=== PATIENT | female | born 1965 | race Caucasian/White ===

== ENCOUNTER → 2016-06-11 | Outpatient (CLI) | payer MEDICAID ==
[2016-06-11 13:26] LABS: CHLORIDE,CL 108 mmol/L (98-110); SODIUM,NA 140 mmol/L (136-146)
== END ==
LOC: MW.CHFP 12:27
PROVIDERS: ATTEND Nurse Practitioner Family
DX: Z00.00 Encounter for general adult medical examination without abnormal findings (principal)
CPT/HCPCS: 36415; 80053; 82746; 83735; 84443; 85027

== ENCOUNTER 2016-06-26 19:01 | Emergency (ER) | payer MEDICAID ==
[2016-06-26] MEDS ORDERED: ALPRAZolam 0.25 MG Tab PO ONE (19:19)
[2016-06-26] MEDS ORDERED: Acetaminophen/HYDROcodone 325-5 MG Tab PO ONE (19:19)
--- NOTE | 2016-06-26 20:24 | EDM.PDOC ---
ED HPI HEAD INJURY - General Chief Complaint: Head Injury Stated Complaint: PT FELL AND HURT HEAD,NECK Time Seen by Provider: 06/26/16 19:08 Source of Information: Reports: Patient History Limitations: Reports: No limitations - History of Present Illness INITIAL COMMENTS - FREE TEXT/NARRATIVE: HISTORY AND PHYSICAL: History of present illness: [50-year-old female now status post slip and fall in the bathroom. Patient states she was cleaning a tub when she slipped fell backwards and hit her head. Patient denies loss of consciousness. She commenced headache and neck pain.] Review of systems: As per history of present illness and below otherwise all systems reviewed and negative. Past medical history: As per history of present illness and as reviewed below otherwise noncontributory. Surgical history: As per history of present illness and as reviewed below otherwise noncontributory. Social history: No reported history of drug or alcohol abuse. Family history: As per history of present illness and as reviewed below otherwise noncontributory. Physical exam: Patient is alert communicative and appropriate however very anxious. She is emotionally labile intermittently conversing normally and seconds later crying HEENT: Atraumatic, normocephalic, pupils reactive, negative for conjunctival pallor or scleral icterus, mucous membranes moist, throat clear, neck supple, soft tissue tenderness bilateral posterior neck with no midline or bony tenderness no step off or crepitus, trachea midline. No stridor Lungs: Clear to auscultation, breath sounds equal bilaterally, chest nontender. No spinal tenderness T. or L-spine. Heart: S1S2, regular, negative for clicks, rubs, or JVD. Abdomen: Soft, nondistended, nontender. Negative for masses or hepatosplenomegaly. Negative for costovertebral tenderness. Pelvis: Stable nontender. Genitourinary: Deferred. Rectal: Deferred. Extremities: Atraumatic, negative for cords or calf pain. Neurovascular unremarkable. Neuro: Awake, alert, oriented. Cranial nerves II through XII unremarkable. Cerebellum unremarkable. Motor and sensory unremarkable throughout. Exam nonfocal. Diagnostics: [CT head and C-spine negative x-ray chest and pelvis negative] Therapeutics: [] Impression: [] Plan: [Signs and symptoms consistent with minor head injury without concussion, cervical strain and contributory anxiety component. Chest x-ray is negative with a benign spinal exam. She is nonfocal neurologically. Patient stable and alert without difficulty on reevaluation prior to discharge after analgesia an anxiety lysis. He is aware to take NSAIDs use ice followup PCP tomorrow. Strict return precautions given specifically no alcohol use or additional sedative ingestion tonight whatsoever. Patient is aware that noncompliance with this recommendation could result in or permanent disability] Definitive disposition and diagnosis as appropriate pending reevaluation and review of above. - Related Data Allergies/ADRs: Allergies Allergy/AdvReac Type Severity Reaction Status Date / Time prochlorperazine Allergy Other Verified 06/26/16 19:10 [From Compazine] prochlorperazine edisylate Allergy Other Verified 06/26/16 19:10 [From Compazine] prochlorperazine maleate Allergy Other Verified 06/26/16 19:10 [From Compazine] Sulfa (Sulfonamide Allergy Other Verified 06/26/16 19:10 Antibiotics) Past Medical History HEENT History: Reports: Otitis media Cardiovascular History: Reports: None Respiratory History: Reports: None Gastrointestinal History: Reports: None Genitourinary History: Reports: None 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: 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 Musculoskeletal History: Reports: Back pain, chronic Other Musculoskeletal History: sciatica Neurological History: Reports: Head trauma, Migraines Psychiatric History: Reports: Addiction, Anxiety Endocrine/Metabolic History: Reports: None - Infectious Disease History Infectious Disease History: Reports: None - Past Surgical History HEENT Surgical History: Reports: Myringotomy w tube(s) Female Surgical History: Reports: None - History Comment History Comment: Alcoholic, previous crack cocaine abuse Social & Family History - Family History Family Medical History: Noncontributory - Tobacco Use Smoking Status *Q: Current Every Day Smoker Years of Tobacco use: 40 Packs/Tins Daily: 1 - Caffeine Use Caffeine Use: Reports: Coffee - Alcohol Use Days Per Week of Alcohol Use: 7 Number of Drinks Per Day: 15 Total Drinks Per Week: 105 - Recreational Drug Use Recreational Drug Use: No Drug Use in Last 12 Months: Yes Recreational Drug Type: Reports: Cocaine, Marijuana/Hashish - Living Situation & Occupation Living situation: Reports: with significant other (Engaged) ED ROS GENERAL - Review of Systems Review Of Systems: See Below (History of present illness) ED EXAM, HEAD INJURY - Physical Exam Exam: See Below (History of present illness) Course - Vital Signs Last Recorded V/S: Last Vital Signs Temp 37.1 C 06/26/16 19:05 Pulse 89 06/26/16 19:05 Resp 20 06/26/16 19:05 BP 151/81 H 06/26/16 19:05 Pulse Ox 97 06/26/16 19:05 - Orders/Labs/Meds Orders: Active Orders 24 hr Category Date Time Status C-Spine [Cervical Spine wo Cont] [CT] Stat Exams 06/26/16 19:13 Taken Chest 1V Frontal [CR] Stat Exams 06/26/16 19:13 Taken Head wo Cont [CT] Stat Exams 06/26/16 19:12 Taken Pelvis 1V or 2V [CR] Stat Exams 06/26/16 19:13 Ordered Meds: Medications Discontinued Medications Generic Name Dose Route Start Last Admin Trade Name Robbi PRN Reason Stop Dose Admin Hydrocodone Bitart/Acetaminophen 1 tab 06/26/16 19:19 06/26/16 19:43 [place]ana 325-5 Mg PO 06/26/16 19:20 1 tab ONETIME ONE Administration Alprazolam 0.25 mg 06/26/16 19:19 06/26/16 19:43 Xanax PO 06/26/16 19:20 0.25 mg ONETIME ONE Administration Departure - Departure Time of Disposition: 20:24 Disposition: Home, Self-Care 01 Condition: good Clinical Impression: Cervical strain, Minor head injury, Anxiety Referrals: PCP,None [Primary Care Provider] - Forms: ED Department Discharge Additional Instructions: You have suffered a minor head injury today with cervical or neck strain. CT scan of your head and neck show no fractures or abnormality. X-rays of the chest and pelvis also showed no additional injury. Take Motrin and Tylenol as needed for pain. Ice any sore areas tonight. Followup with your Dr. tomorrow for reevaluation and return immediately for new severe or worsening symptoms - My Orders Last 24 Hours: My Active Orders 06/26/16 19:12 Head wo Cont [CT] Stat 06/26/16 19:13 C-Spine [Cervical Spine wo Cont] [CT] Stat Chest 1V Frontal [CR] Stat Pelvis 1V or 2V [CR] Stat - Assessment/Plan Last 24 Hours: My Active Orders 06/26/16 19:12 Head wo Cont [CT] Stat 06/26/16 19:13 C-Spine [Cervical Spine wo Cont] [CT] Stat Chest 1V Frontal [CR] Stat Pelvis 1V or 2V [CR] Stat
[2016-06-26 20:45] VITALS: BP 129/78
--- NOTE | 2016-06-27 10:19 | CT ---
EXAM DATE: 06/26/16 PATIENT'S AGE: 50 Patient: ENID GUZMAN Facility: [place], [place] Site . Site : 1965 Study: CT Head [id number]/5/2017 7:32:28 PM Ordering Physician: Sandor Gaston Final Report: INDICATION: pt hit head while cleaning floors TECHNIQUE: CT Head without contrast. COMPARISON: None. FINDINGS: There is no sign of intracranial hemorrhage or mass effect. Ventricles and sulci are symmetric and midline. The powell-white differentiation is preserved. No abnormal intra-axial or extra-axial fluid collection. Mild mucoperiosteal thickening of the imaged maxillary sinuses. No acute disease of the mastoid air cells. No fracture evident. No scalp hematoma/laceration. IMPRESSION: No acute intracranial process. Dictated by: Jacob Levine MD @ 06/26/2016 19:44:50 (Electronic Signature) Report Signed by Proxy and Original Signed Document filed in the Medical Record. [facility]
--- NOTE | 2016-06-27 10:20 | CT ---
EXAM DATE: 06/26/16 PATIENT'S AGE: 50 Patient: ENID GUZMAN Facility: [place], [place] Site . Site : 1965 Study: CT Spine Cervical [id number]/5/2017 7:32:44 PM Ordering Physician: Sandor Gaston Final Report: INDICATION: pt hit head while cleaning floors TECHNIQUE: CT cervical spine without contrast COMPARISON: None FINDINGS: Vertebrae: There are no fractures or suspicious bony lesions. Discs and facet joints: Multilevel degenerative changes most pronounced at the lower cervical levels. Extraspinal findings: Prevertebral soft tissues, visualized airway, and visualized lungs are unremarkable. IMPRESSION: No acute bony abnormality of the cervical spine. Dictated by Jacob Levine MD @ 06/26/2016 7:48:18 PM Dictated by: Jacob Levine MD @ 06/26/2016 19:48:34 (Electronic Signature) Report Signed by Proxy and Original Signed Document filed in the Medical Record. [facility]
--- NOTE | 2016-06-27 10:21 | CR ---
EXAM DATE: 06/26/16 PATIENT'S AGE: 50 Patient: ENID GUZMAN Facility: [place], [place] Site . Site : 1965 Study: XRay Chest [id number]/5/2017 7:34:36 PM Ordering Physician: Sandor Gaston Final Report: INDICATION: fell on a bathtub TECHNIQUE: Chest 1 view COMPARISON: None FINDINGS: Cardiovascular and mediastinum: Heart size and vasculature are normal in caliber and appearance. Mediastinum is within normal limits. Lungs and pleural space: No focal consolidation. No sign of pleural effusion. No pneumothorax. Bones and soft tissues: No significant findings. IMPRESSION: No acute cardiopulmonary disease. Dictated by Jacob Levine MD @ 06/26/2016 7:35:54 PM Dictated by: Jacob Levine MD @ 06/26/2016 19:36:06 (Electronic Signature) Report Signed by Proxy and Original Signed Document filed in the Medical Record. [facility]
--- NOTE | 2016-06-27 10:22 | CR ---
EXAM DATE: 06/26/16 PATIENT'S AGE: 50 Patient: ENID GUZMAN Facility: [place], [place] Site . Site : 1965 Study: XRay Pelvis [id number]/5/2017 7:34:58 PM Ordering Physician: Sandor Gaston Final Report: INDICATION: fell on a bath tub TECHNIQUE: Single AP view of the bony pelvis COMPARISON: None FINDINGS: Bones: No fractures or bone lesions. Joint spaces: Unremarkable. Soft tissues: Unremarkable. IMPRESSION: No gross evidence for acute bony abnormality. Dictated by Jacob Levine MD @ 06/26/2016 7:37:29 PM Dictated by: Jacob Levine MD @ 06/26/2016 19:37:37 (Electronic Signature) Report Signed by Proxy and Original Signed Document filed in the Medical Record. [facility]
== END 2016-06-26 20:45 | disposition home or self-care (01) ==
LOC: MW.ED 19:01
DX: S09.90XA Unspecified injury of head, initial encounter (principal); S16.1XXA Strain of muscle, fascia and tendon at neck level, initial encounter; F41.9 Anxiety disorder, unspecified; F17.210 Nicotine dependence, cigarettes, uncomplicated; W01.0XXA Fall on same level from slipping, tripping and stumbling without subsequent striking against object, initial encounter; Y93.E9 Activity, other interior property and clothing maintenance; Y92.89 Other specified places as the place of occurrence of the external cause; Z98.890 Other specified postprocedural states; Z88.2 Allergy status to sulfonamides; Z88.8 Allergy status to other drugs, medicaments and biological substances
CPT/HCPCS: 70450; 71010; 72125; 72170; 99284; A9270; 99283

== ENCOUNTER 2016-07-29 01:52 | Emergency (ER) | payer MEDICAID ==
[2016-07-29 02:01] VITALS: BP 137/89
[2016-07-29] MEDS ORDERED: Azithromycin 250 MG Tab PO ONE (02:16)
[2016-07-29] MEDS ORDERED: Benzonatate 100 MG Cap PO ONE (02:17)
--- NOTE | 2016-07-29 02:18 | EDM.PDOC ---
ED HISTORY OF PRESENT ILLNESS - General Chief Complaint: Respiratory Problem Stated Complaint: COUGHING UP GREEN SUBSTANCE Time Seen by Provider: 07/29/16 01:56 Source of Information: Reports: Patient History Limitations: Reports: No limitations - History of Present Illness INITIAL COMMENTS - FREE TEXT/NARRATIVE: HISTORY AND PHYSICAL: History of present illness: [40-year-old female with a history of long-term tobacco abuse now complaining of productive cough wheezing and anxiety. Patient smokes 10 cigarettes a day. She states she's had a cough with green sputum recently. She is wheezy intermittently in her presentation now is complicated by an attack of anxiety denies chest pain specifically no exertional chest pain no pleuritic pain. Otherwise his] Review of systems: As per history of present illness and below otherwise all systems reviewed and negative. Past medical history: As per history of present illness and as reviewed below otherwise noncontributory. Surgical history: As per history of present illness and as reviewed below otherwise noncontributory. Social history: No reported history of drug or alcohol abuse. Family history: As per history of present illness and as reviewed below otherwise noncontributory. Physical exam: HEENT: Atraumatic, normocephalic, pupils reactive, negative for conjunctival pallor or scleral icterus, mucous membranes moist, throat clear, neck supple, nontender, trachea midline. Lungs minimal scattered rhonchi no wheezes breath sounds equal bilaterally, chest nontender. Heart: S1S2, regular, negative for clicks, rubs, or JVD. Abdomen: Soft, nondistended, nontender. Negative for masses or hepatosplenomegaly. Negative for costovertebral tenderness. Pelvis: Stable nontender. Genitourinary: Deferred. Rectal: Deferred. Extremities: Atraumatic, negative for cords or calf pain. Neurovascular unremarkable. Neuro: Awake, alert, oriented. Cranial nerves unremarkable. Cerebellum unremarkable. Motor and sensory unremarkable throughout. Exam nonfocal. Diagnostics: [x one view interpreted by me, no acute disease no infiltrate no pneumothorax Therapeutics: Impression: [] Plan: [[Signs and symptoms consistent with URI viral versus bacterial. Nebulizer treatment with complete resolution of trace bronchospasm after single DuoNeb treatment. Patient refusing steroids as she feels it makes her face bloated, patient in normal respiratory rate and pulse ox. Discussed with patient we'll cover with Zithromax for possibility of pneumonia bronchitis atypical infection or pertussis. Clearly anxious we'll give dose of Xanax when ride arrives. No further workup or treatment indicated patient agrees with outpatient followup and strict return precautions given] Definitive disposition and diagnosis as appropriate pending reevaluation and review of above. - Related Data Allergies/ADRs: Allergies Allergy/AdvReac Type Severity Reaction Status Date / Time prochlorperazine Allergy Other Verified 06/26/16 19:10 [From Compazine] prochlorperazine edisylate Allergy Other Verified 06/26/16 19:10 [From Compazine] prochlorperazine maleate Allergy Other Verified 06/26/16 19:10 [From Compazine] Sulfa (Sulfonamide Allergy Other Verified 07/29/16 02:04 Antibiotics) Home Meds: Home Meds Albuterol [Proventil HFA] 6.7 gm INH Q4H PRN #1 inhaler 07/29/16 [Rx] Azithromycin [Zithromax] 250 mg PO DAILY #6 tablet 07/29/16 [Rx] Benzonatate 200 mg PO TID #30 capsule 07/29/16 [Rx] Meclizine [Antivert] 12.5 mg PO DAILY 07/29/16 [History] Ondansetron HCl [Zofran] 4 mg PO Q6HR PRN 07/29/16 [History] chlordiazePOXIDE [Librium] 10 mg PO TID PRN 07/29/16 [History] Past Medical History HEENT History: Reports: Otitis media Cardiovascular History: Reports: None Respiratory History: Reports: None Gastrointestinal History: Reports: None Genitourinary History: Reports: None 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 Musculoskeletal History: Reports: Back pain, chronic Other Musculoskeletal History: sciatica Neurological History: Reports: Head trauma, Migraines, Vertigo Psychiatric History: Reports: Addiction, Anxiety Other Psychiatric History: Addiction to Cocaine Endocrine/Metabolic History: Reports: None - Infectious Disease History Infectious Disease History: Reports: Chicken pox, Measles - Past Surgical History HEENT Surgical History: Reports: Myringotomy w tube(s), Tonsillectomy Female Surgical History: Reports: None - History Comment History Comment: Alcoholic, previous crack cocaine abuse Social & Family History - Family History Family Medical History: Noncontributory - Tobacco Use Smoking Status *Q: Current Every Day Smoker Years of Tobacco use: 25 Packs/Tins Daily: 0.5 - Caffeine Use Caffeine Use: Reports: Coffee Caffeine Use Comment: 1-2cups/day - Alcohol Use Days Per Week of Alcohol Use: 3 Number of Drinks Per Day: 1 Total Drinks Per Week: 3 - Recreational Drug Use Recreational Drug Use: No Drug Use in Last 12 Months: Yes Recreational Drug Type: Reports: Cocaine, Marijuana/Hashish - Living Situation & Occupation Living situation: Reports: with significant other (Engaged) ED ROS GENERAL - Review of Systems Review Of Systems: See Below (History of present illness) ED EXAM, GENERAL - Physical Exam Exam: See Below (History of present illness) Course - Vital Signs Last Recorded V/S: Last Vital Signs Temp 36.3 C 07/29/16 01:57 Pulse 88 07/29/16 01:57 Resp 21 H 07/29/16 01:57 BP 137/89 07/29/16 01:57 Pulse Ox - Orders/Labs/Meds Orders: Active Orders 24 hr Category Date Time Status RT Aerosol Therapy [RC] ASDIRECTED Care 07/29/16 02:23 Active Chest 1V Frontal [CR] Stat Exams 07/29/16 02:16 Ordered Meds: Medications Discontinued Medications Generic Name Dose Route Start Last Admin Trade Name Reggieq PRN Reason Stop Dose Admin Albuterol/Ipratropium 3 ml 07/29/16 02:23 07/29/16 02:29 Duoneb 3.0-0.5 Mg/3 Ml NEB 07/29/16 02:24 3 ml ONETIME ONE Administration Azithromycin 500 mg 07/29/16 02:16 07/29/16 02:35 Zithromax PO 07/29/16 02:17 500 mg ONETIME ONE Administration Benzonatate 200 mg 07/29/16 02:17 07/29/16 02:34 Tessalon Perles PO 07/29/16 02:18 200 mg ONETIME ONE Administration Departure - Departure Time of Disposition: 03:08 Disposition: Home, Self-Care 01 Condition: good Clinical Impression: URI (upper respiratory infection), Tobacco abuse, Bronchospasm, Acute anxiety Prescriptions: Azithromycin [Zithromax] 250 mg PO DAILY #6 tablet Benzonatate 200 mg PO TID #30 capsule Instructions: Smoking Cessation, Tips for Success, [id number] Referrals: PCP,None [Primary Care Provider] - Forms: ED Department Discharge Additional Instructions: Your history and findings are consistent with upper respiratory infection. Your chest x-ray shows no pneumonia. You have no wheezing after your bronchodilator therapy. Use albuterol inhaler as needed or wheezing, take Mucinex DM as needed for cough and Tessalon as needed for breakthrough cough. Rest and drink plenty of fluids. He may find significant benefit from using a bedside vaporizer to put cool mist in the air while you sleep. Your presentation is clearly complicated tonight by your history of anxiety. Finish Zithromax as prescribed and Followup with your DrYari in one to 2 days and return immediately for new severe or worsening symptoms - My Orders Last 24 Hours: My Active Orders 07/29/16 02:16 Chest 1V Frontal [CR] Stat 07/29/16 02:23 RT Aerosol Therapy [RC] ASDIRECTED - Assessment/Plan Last 24 Hours: My Active Orders 07/29/16 02:16 Chest 1V Frontal [CR] Stat 07/29/16 02:23 RT Aerosol Therapy [RC] ASDIRECTED
[2016-07-29] MEDS ORDERED: Albuterol/Ipratropium 3.0-0.5 MG/3 ML Neb Soln NEB ONE (02:23)
[2016-07-29] MEDS ORDERED: ALPRAZolam 0.5 MG Tab PO ONE (03:20)
--- NOTE | 2016-07-30 12:15 | CR ---
EXAM DATE: 07/29/16 PATIENT'S AGE: 50 Patient: ENID GUZMAN Facility: [place], [place] Site . Site : 1965 Study: XRay Chest [id number]/8/2017 2:59:57 AM Ordering Physician: Sandor Gaston Final Report: INDICATION: pain, sob TECHNIQUE: Chest 1 view. COMPARISON: 06/26/16 FINDINGS: Cardiovascular and mediastinum: Heart size and vasculature are normal in caliber and appearance. Mediastinum is within normal limits. Lungs and pleural space: Lungs are clear. No sign of infiltrate or mass. No sign of pleural effusion. No pneumothorax. Bones and soft tissues: No significant findings. IMPRESSION: Unremarkable chest. Dictated by: Gonzalez Baker MD @ 07/29/2016 03:02:32 (Electronic Signature) Report Signed by Proxy. [facility] CENTERAntonieta
== END 2016-07-29 03:51 | disposition home or self-care (01) ==
LOC: MW.ED 01:52
DX: J98.01 Acute bronchospasm (principal); J06.9 Acute upper respiratory infection, unspecified; F41.9 Anxiety disorder, unspecified; G43.909 Migraine, unspecified, not intractable, without status migrainosus; F17.210 Nicotine dependence, cigarettes, uncomplicated; Z88.2 Allergy status to sulfonamides; Z88.8 Allergy status to other drugs, medicaments and biological substances; Z79.899 Other long term (current) drug therapy
CPT/HCPCS: 71010; 99283; A9270

== ENCOUNTER 2017-06-23 09:32 | Day surgery (SDC) | payer BC ==
[~2017-06-23 09:32] MED LIST: Lactated Ringers 1,000 ML IV SCH
[2017-06-23] MEDS ORDERED: Propofol 200 MG/20 ML SDV ONE ×2 (10:50→12:07)
[2017-06-23] MEDS ORDERED: fentaNYL 100 MCG/2 ML SDV ONE (10:50)
[2017-06-23] MEDS ORDERED: Lidocaine 2% 5 ML SDV ONE (10:50)
[2017-06-23] MEDS ORDERED: Midazolam 1 MG/ML 2 ML SDV ONE (10:50)
--- NOTE | 2017-06-23 10:53 | PCM.PREANE ---
Preanesthetic Assessment - Anesthesia/Transfusion/Family Hx Anesthesia History: Prior Anesthesia Without Reaction Family History of Anesthesia Reaction: No Transfusion History: No Prior Transfusion(s) Intubation History: Unknown - Review of Systems General: No Symptoms Pulmonary: No Symptoms Cardiovascular: No Symptoms Gastrointestinal: No Symptoms, Other (screening) Neurological: No Symptoms Other: Reports: None - Physical Assessment O2 Sat by Pulse Oximetry: 98 Respiratory Rate: 16 Vital Signs: Last Vital Signs Temp 36.2 C 06/23/17 10:25 Pulse 59 L 06/23/17 10:25 Resp 16 06/23/17 10:25 BP 101/58 L 06/23/17 10:25 Pulse Ox 98 06/23/17 10:25 Height: 1.63 m Weight: 55.338 kg ASA Class: 2 Mental Status: Alert & Oriented x3 Airway Class: Mallampati = 2 Dentition: Reports: Normal Dentition (veneer x1 uppre front incisor) Thyro-Mental Finger Breadths: 3 Mouth Opening Finger Breadths: 3 ROM/Head Extension: Full Lungs: Clear to Auscultation, Normal Respiratory Effort Cardiovascular: Regular Rate, Regular Rhythm - Lab Values: Laboratory Last Values Urine HCG, Qual NEGATIVE (NEGATIVE) 06/23/17 09:53 - Allergies Allergies/Adverse Reactions: Allergies Allergy/AdvReac Type Severity Reaction Status Date / Time prochlorperazine Allergy Other Verified 06/18/17 12:03 [From Compazine] prochlorperazine edisylate Allergy Other Verified 06/18/17 12:03 [From Compazine] prochlorperazine maleate Allergy Other Verified 06/18/17 12:03 [From Compazine] Sulfa (Sulfonamide Allergy Hives Verified 06/18/17 12:03 Antibiotics) - Blood Blood Available: No - Anesthesia Plan Pre-Op Medication Ordered: None - Acknowledgements Anesthesia Type Planned: MAC Pt an Appropriate Candidate for the Planned Anesthesia: Yes Alternatives and Risks of Anesthesia Discussed w Pt/Guardian: Yes Pt/Guardian Understands and Agrees with Anesthesia Plan: Yes PreAnesthesia Questionnaire HEENT History: Reports: Otitis Media Cardiovascular History: Reports: None Respiratory History: Reports: None Gastrointestinal History: Reports: Gastritis, GERD Genitourinary History: Reports: None 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 Musculoskeletal History: Reports: Back Pain, Chronic, Fracture Other Musculoskeletal History: sciatica, hx of fx wrist Neurological History: Reports: Head Trauma, Migraines, Vertigo Other Neuro History: 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 Psychiatric History: Reports: Addiction, Anxiety Other Psychiatric History: Addiction to Cocaine and alcohol- sober 1 year Endocrine/Metabolic History: Reports: None Hematologic History: Reports: B12 Deficiency - Infectious Disease History Infectious Disease History: Reports: Chicken Pox, Measles - Past Surgical History HEENT Surgical History: Reports: Eye Surgery, Myringotomy w Tube(s), Tonsillectomy Other HEENT Surgeries/Procedures: hx of eye muscle surgery GI Surgical History: Reports: Colonoscopy (at age 17) Female Surgical History: Reports: None - History Comment History Comment: Alcoholic, previous crack cocaine abuse - SUBSTANCE USE Smoking Status *Q: Current Every Day Smoker (1/2 ppd) Tobacco Use Within Last Twelve Months: Cigarettes Days Per Week of Alcohol Use: 3 Number of Drinks Per Day: 1 Total Drinks Per Week: 3 Recreational Drug Use History: Yes Recreational Drug Type: Reports: Marijuana/Hashish, Other (see below) (h/o crack cocaine use in the past) - HOME MEDS Home Medications: Home Meds chlordiazePOXIDE [Librium] 10 mg PO BID PRN 07/29/16 [History] Cyanocobalamin (Vitamin B-12) [Vitamin B-12] 1,000 mcg PO DAILY 06/18/17 [ History] Eletriptan HBr 40 mg PO ASDIRECTED PRN 06/18/17 [History] Estrogen,Con/M-Progest Acet [Prempro 0.3 MG-1.5 MG] 1 tab PO DAILY 06/18/17 [ History] Melatonin 10 mg PO BEDTIME 06/18/17 [History] Naltrexone HCl [Revia] 50 mg PO DAILY 06/18/17 [History] Vit W-Ca,Fe,FA(<1 mg) [ Vitamins] 1 tab PO DAILY 06/18/17 [ History] cloNIDine [Catapres] 0.1 mg PO DAILY 06/18/17 [History] - CURRENT (IN HOUSE) MEDS Current Meds: Current Medications Lactated Ringer's (Ringers, Lactated) 1,000 mls @ 125 mls/hr IV ASDIRECTED CRISTOPHER Last Admin: 06/23/17 10:35 Dose: 125 mls/hr Discontinued Medications Lactated Ringer's (Ringers, Lactated) 1,000 mls @ 125 mls/hr IV ASDIRECTED CRISTOPHER
[2017-06-23] MEDS ORDERED: Lactated Ringers 1,000 ML IV SCH (12:30)
--- NOTE | 2017-06-23 12:32 | PCM.OPNOTE ---
- General Post-Op/Procedure Note Date of Surgery/Procedure: 06/23/17 Operative Procedure(s): Colonoscopy Pre Op Diagnosis: Desire for colorectal cancer screening Post-Op Diagnosis: No evidence of neoplasia Anesthesia Technique: MAC (ASA II) Primary Surgeon: Jesús Chou Public Speaking Coach: Himanshu Montero Condition: Good Free Text/Narrative:: Dictation [id number] CPT CODE 43048
--- NOTE | 2017-06-23 12:49 | PCM.POSTAN ---
POST ANESTHESIA ASSESSMENT - MENTAL STATUS Mental Status: Alert, Oriented - RESPIRATORY Respiratory Status: Respiratory Rate WNL, Airway Patent, O2 Saturation Stable - CARDIOVASCULAR CV Status: Pulse Rate WNL, Blood Pressure Stable - GASTROINTESTINAL GI Status: No Symptoms - PAIN Pain Score: 0 - POST OP HYDRATION Hydration Status: Adequate & Stable
[2017-06-23 13:51] VITALS: BP 109/68
--- NOTE | 2017-06-23 14:13 | PCM48HPAN ---
Post Anesthesia Note - EVALUATION WITHIN 48HRS OF ANESTHETIC Vital Signs in Normal Range: Yes Patient Participated in Evaluation: Yes Respiratory Function Stable: Yes Airway Patent: Yes Cardiovascular Function Stable: Yes Hydration Status Stable: Yes Pain Control Satisfactory: Yes Nausea and Vomiting Control Satisfactory: Yes Mental Status Recovered: Yes Resp Rate: 18 - COMMENTS/OBSERVATIONS Free Text/Narrative:: no anesthesia problems
--- NOTE | 2017-06-23 20:11 | OR ---
SURGEON: Jesús Chou M.D. DATE OF PROCEDURE: 06/23/2017 OPERATION PERFORMED: Colonoscopy. INFORMATION TECHNOLOGY COORDINATOR: Dr. Montero, PGY-2 ANESTHESIA: MAC. ASA CLASSIFICATION: II. PREOPERATIVE DIAGNOSIS: Desire for colorectal cancer screening. POSTOPERATIVE DIAGNOSIS: No evidence of neoplasia. DESCRIPTION OF PROCEDURE: The patient was taken to the endoscopy room and positioned on the endoscopy table in the left lateral decubitus position. A time-out was called for appropriate identification of the patient and procedure. Monitored anesthesia care was provided. The colonoscope was inserted into the rectum and advanced with significant difficulty to the cecum. Despite multiple maneuvers, I was never able to retroflex the colonoscope in the cecum. The colonoscope was then straightened and slowly withdrawn. The cecum, ascending colon, hepatic flexure, transverse colon, splenic flexure, descending colon, sigmoid colon, and rectum were well visualized. No tumors, polyps, diverticula, or angiodysplastic changes were noted anywhere in the lower gastrointestinal tract. Once the colonoscope was withdrawn to the rectum, it was retroflexed to visualize the anal orifice from above. Again, no tumors or polyps were seen and there were no acute hemorrhoidal changes. The colonoscope was then straightened, the rectum aspirated, and the colonoscope removed. The patient tolerated the procedure well and was taken to recovery room in stable condition. LUPIS DELEON /[id number]
== END 2017-06-23 13:55 | disposition home or self-care (01) ==
LOC: MW.SDS 09:32
PROVIDERS: ATTEND Surgery
DX: Z12.11 Encounter for screening for malignant neoplasm of colon (principal); F41.9 Anxiety disorder, unspecified; E53.8 Deficiency of other specified B group vitamins; F17.200 Nicotine dependence, unspecified, uncomplicated; K21.9 Gastro-esophageal reflux disease without esophagitis; Z88.2 Allergy status to sulfonamides; Z88.8 Allergy status to other drugs, medicaments and biological substances; Z79.899 Other long term (current) drug therapy; Z98.890 Other specified postprocedural states
CPT/HCPCS: 45378; 81025; J2250; J3010; J7120; 00812; J2704